=== PATIENT | male | born 1975 | race African-American/Black ===

== ENCOUNTER 2018-10-20 23:34 | Emergency (ER) | payer BC ==
[~2018-10-20] VITALS: Ht 190.5 cm; Wt 136.1 kg
[2018-10-20] MEDS ORDERED: NORVASC5 MG PO (23:50)
[2018-10-21 00:01] LABS: HEMATOCRIT 48.8 % (42.0-52.0); HEMOGLOBIN 16.8 gm/dL (14.0-18.0); MCH 30.7 pg (26.0-34.0); MCHC 34.5 g/dL (28.0-37.0); MCV 88.9 fL (80.0-100.0); RBC 5.48 mil/uL (4.50-6.00); RDW 13.8 % (10.5-14.5); WBC 5.4 thou/uL (4.0-11.0)
[2018-10-21 00:09] LABS: CALCIUM 9.2 mg/dL (8.5-10.1); CREATININE 1.1 mg/dL (0.7-1.3); POTASSIUM 3.8 mmol/L (3.5-5.1)
[2018-10-21] MEDS ORDERED: AMBIEN 5 MG TABL5 M1 PO (00:42)
[2018-10-21] MEDS ORDERED: TELMISARTAN40 MG PO (00:42)
[2018-10-21] MEDS ORDERED: ATENOLOL 25 MG25 M1 PO (00:42)
[2018-10-21] MEDS ORDERED: CIPROFLOXIN HC2.5 M1 OPHTHALMIC (00:57)
[2018-10-21 01:49] VITALS: BP 144/93
== END 2018-10-21 01:50 | disposition home or self-care (01) ==
LOC: ER 23:34
PROVIDERS: Emergency Medicine
DX: S40.811A Abrasion of right upper arm, initial encounter (principal); T15.02XA Foreign body in cornea, left eye, initial encounter; F17.210 Nicotine dependence, cigarettes, uncomplicated; I10 Essential (primary) hypertension; V49.9XXA Car occupant (driver) (passenger) injured in unspecified traffic accident, initial encounter; Y93.89 Activity, other specified; Y92.89 Other specified places as the place of occurrence of the external cause; Y99.8 Other external cause status